=== PATIENT | male | born 1970 | race Caucasian/White ===

== ENCOUNTER 2018-01-26 16:14 | Emergency (ER) | payer OTHER ==
[~2018-01-26] VITALS: Ht 180.3 cm; Wt 105.0 kg
[~2018-01-26 16:14] MED LIST: ATEN-102 PO; BENZ2 PO; GEOD80CA PO; GLUCTAB PO; HALO1TAB25 PO; LAMO150 PO; LIPI80TA16 PO; PROT40TA PO; SERT100 PO
[2018-01-26 16:29] VITALS: BP 149/84; PULSE 70; RESP 17; TEMP 97.8; O2SAT 99
[2018-01-26 17:39] LABS: BASOPHIL # 0.1 TH/MM3 (0-0.2); BASOPHIL % 0.7 % (0.0-2.0); EOSINOPHIL # 0.1 TH/MM3 (0-0.4); HEMATOCRIT 41.5 % (39.0-51.0); HEMOGLOBIN 14.1 GM/DL (13.0-17.0); LYMPH % 20.8 % (9.0-44.0); LYMPHOCYTE # 2.3 TH/MM3 (1.0-4.8); MEAN CELL VOLUME 87.4 FL (80.0-100.0); MEAN CORPUSCULAR HEMOGLOBIN 29.8 PG (27.0-34.0); MEAN CORPUSCULAR HGB CONC 34.1 % (32.0-36.0); MEAN PLATELET VOLUME 9.2 FL (7.0-11.0); MONO % 6.2 % (0.0-8.0); MONOCYTE # 0.7 TH/MM3 (0-0.9); NEUT % 71.3 % (16.0-70.0); PLATELET COUNT 290 TH/MM3 (150-450); RED BLOOD COUNT 4.75 MIL/MM3 (4.50-5.90); RED CELL DISTRIBUTION WIDTH 14.3 % (11.6-17.2); WHITE BLOOD COUNT 11.2 TH/MM3 (4.0-11.0)
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
[2018-01-26 17:57] LABS: ALBUMIN 4.2 GM/DL (3.4-5.0); ALT (GPT) 17 U/L (12-78); AST (GOT) 16 U/L (15-37); BICARBONATE 24.2 MEQ/L (21.0-32.0); BLOOD UREA NITROGEN 14 MG/DL (7-18); CALCIUM 9.3 MG/DL (8.5-10.1); CHLORIDE 108 MEQ/L (98-107); CREATININE 1.21 MG/DL (0.60-1.30); GLOMERULAR FILTRATION RATE 65 ML/MIN (>89); GLUCOSE,RANDOM 76 MG/DL (74-106); SODIUM (NA) 140 MEQ/L (136-145)
[2018-01-26 17:59] LABS: ALKALINE PHOSPHATASE 42 U/L (45-117); TOTAL BILIRUBIN ADULT 0.6 MG/DL (0.2-1.0); TOTAL PROTEIN 7.6 GM/DL (6.4-8.2)
[2018-01-26] MEDS ORDERED: NICOTINE 21 MG/24 HR PATCH T-DERMAL ONE (18:00)
[2018-01-26] MEDS ORDERED: ZIPRASIDONE HCL 80 MG CAP PO ONE (18:00)
[2018-01-26] MEDS ORDERED: ZOLO100T PO (18:01)
[2018-01-26] MEDS ORDERED: LIPI80TA PO (18:01)
[2018-01-26] MEDS ORDERED: BENZ0.5T PO (18:01)
[2018-01-26] MEDS ORDERED: PROT40TA PO (18:01)
[2018-01-26] MEDS ORDERED: LAMO150 PO (18:01)
[2018-01-26] MEDS ORDERED: GEOD80CA PO (18:01)
[2018-01-26] MEDS ORDERED: ATEN50TA PO (18:01)
[2018-01-26 19:55] VITALS: BP 135/76; PULSE 73; RESP 17; O2SAT 97
[2018-01-26 22:30] VITALS: BP 114/55; PULSE 59; RESP 18; TEMP 97.8; O2SAT 96
[2018-01-27 02:40] VITALS: BP 107/52; PULSE 58; RESP 20; TEMP 98.4; O2SAT 92
[2018-01-27 06:04] VITALS: BP 101/52; PULSE 56; RESP 20; TEMP 98.4; O2SAT 95
[2018-01-27 06:07] VITALS: BP 103/58; PULSE 89; RESP 17; TEMP 97.2; O2SAT 100
--- NOTE | 2018-01-27 11:51 | PD ---
Physical Exam Date Seen by Provider: Jan 27, 2018 Time Seen by Provider: 11:50 Narrative 47-year-old male previously medically cleared for psychiatric evaluation has been seen and evaluated by psychiatric services. Patient is deemed psychiatrically stable for discharge. Follow-up is based on psychiatric note. Patient remains medically stable at discharge. Data Data Last Documented VS Vital Signs Date Time Temp Pulse Resp B/P (MAP) Pulse Ox O2 Delivery O2 Flow Rate FiO2 01/27/18 06:07 97.2 89 17 103/58 (73) 100 Room Air Orders Orders Complete Blood Count With Diff (01/26/18 16:31) Comprehensive Metabolic Panel (01/26/18 16:31) Psych Screen (01/26/18 16:31) Drug Screen, Random Urine (01/26/18 16:31) Nicotine 21 Mg Patch.24 Hr (Habitrol 21 (01/26/18 18:00) Ziprasidone (Geodon) (01/26/18 18:00) Diet Regular Basic (01/26/18 Dinner) Diet Regular Basic (01/27/18 Breakfast) Diet Regular Basic (01/27/18 Lunch) Labs Laboratory Tests Test 01/26/18 16:37 01/26/18 18:15 White Blood Count 11.2 TH/MM3 Red Blood Count 4.75 MIL/MM3 Hemoglobin 14.1 GM/DL Hematocrit 41.5 % Mean Corpuscular Volume 87.4 FL Mean Corpuscular Hemoglobin 29.8 PG Mean Corpuscular Hemoglobin Concent 34.1 % Red Cell Distribution Width 14.3 % Platelet Count 290 TH/MM3 Mean Platelet Volume 9.2 FL Neutrophils (%) (Auto) 71.3 % Lymphocytes (%) (Auto) 20.8 % Monocytes (%) (Auto) 6.2 % Eosinophils (%) (Auto) 1.0 % Basophils (%) (Auto) 0.7 % Neutrophils # (Auto) 8.0 TH/MM3 Lymphocytes # (Auto) 2.3 TH/MM3 Monocytes # (Auto) 0.7 TH/MM3 Eosinophils # (Auto) 0.1 TH/MM3 Basophils # (Auto) 0.1 TH/MM3 CBC Comment DIFF FINAL Differential Comment Blood Urea Nitrogen 14 MG/DL Creatinine 1.21 MG/DL Random Glucose 76 MG/DL Total Protein 7.6 GM/DL Albumin 4.2 GM/DL Calcium Level 9.3 MG/DL Alkaline Phosphatase 42 U/L Aspartate Amino Transf (AST/SGOT) 16 U/L Alanine Aminotransferase (ALT/SGPT) 17 U/L Total Bilirubin 0.6 MG/DL Sodium Level 140 MEQ/L Potassium Level 4.2 MEQ/L Chloride Level 108 MEQ/L Carbon Dioxide Level 24.2 MEQ/L Anion Gap 8 MEQ/L Estimat Glomerular Filtration Rate 65 ML/MIN Urine Opiates Screen NEG Urine Barbiturates Screen NEG Urine Amphetamines Screen NEG Urine Benzodiazepines Screen POS Urine Cocaine Screen NEG Urine Cannabinoids Screen NEG MDM Medical Record Reviewed: Yes Supervised Visit with OSEI: Yes Narrative Course 47-year-old male previously medically cleared for psychiatric evaluation has been seen and evaluated by psychiatric services. Patient is deemed psychiatrically stable for discharge. Follow-up is based on psychiatric note. Patient remains medically stable at discharge. Diagnosis Primary Impression: Medical clearance for psychiatric admission Patient Instructions: General Instructions Disposition: 01 DISCHARGE HOME Condition: Stable Jose R Gibbons Jan 27, 2018 11:51
== END 2018-01-27 12:20 | disposition home or self-care (01) ==
LOC: NEPD 16:14 → NEPJ 01-27 12:20
DX: F20.9 Schizophrenia, unspecified (principal); F31.9 Bipolar disorder, unspecified; F90.9 Attention-deficit hyperactivity disorder, unspecified type; I10 Essential (primary) hypertension; F17.210 Nicotine dependence, cigarettes, uncomplicated
CPT/HCPCS: 80053; 80307; 85025; 99283

== ENCOUNTER 2018-08-08 12:28 | Inpatient (IN) ==
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
[2018-08-08 14:59] LABS: Baso # (Auto) 0.1 th/mm3 (0.0-0.2); Baso % (Auto) 0.7 % (0.0-2.0); Eos # (Auto) 0.1 th/mm3 (0.0-0.4); Eos % (Auto) 0.6 % (0.0-4.0); Hematocrit 43.9 % (39.0-51.0); Hemoglobin 15.1 gm/dL (13.0-17.0); Lymph % (Auto) 12.2 % (9.0-44.0); Mean Corpuscular HGB Conc 34.5 % (32.0-36.0); Mean Corpuscular Hemoglobin 30.5 pg (27.0-34.0); Mean Corpuscular Volume 88.6 fL (80.0-100.0); Mean Platelet Volume 9.2 fL (7.0-11.0); Mono # (Auto) 1.3 th/mm3 (0.0-0.9); Mono % (Auto) 7.8 % (0.0-8.0); Neut # (Auto) 13.2 th/mm3 (1.8-7.7); Neut % (Auto) 78.7 % (16.0-70.0); Platelet Count 297 th/mm3 (150-450); Red Blood Count 4.96 mil/mm3 (4.50-5.90); Red Cell Distribution Width 14.6 % (11.6-17.2); White Blood Count 16.8 th/mm3 (4.0-11.0)
[2018-08-08 15:17] LABS: Amphetamine Screen,Urine Neg (Neg); Anion Gap 8 meq/L (5-15); Barbiturate Screen,Urine Neg (Neg); Cannabinoid Screen,Urine Neg (Neg); Cocaine Screen,Urine Neg (Neg)
[2018-08-08 15:22] LABS: Opiate Screen,Urine Neg (Neg)
[2018-08-08 15:30] LABS: Alanine Aminotransferase 12 U/L (12-78); Albumin 3.6 g/dL (3.4-5.0); Alkaline Phosphatase 77 U/L (45-117); Aspartate Aminotransferase 8 U/L (15-37); Blood Urea Nitrogen 4 mg/dL (7-18); Calcium 8.7 mg/dL (8.5-10.1); Carbon Dioxide 27.2 meq/L (21.0-32.0); Chloride 103 meq/L (98-107); Glomerular Filtration Rate Greater Than 89 mL/min (>89); Glucose,Random 98 mg/dL (74-106); Potassium 3.5 meq/L (3.5-5.1); Sodium 138 meq/L (136-145); Thyroid Stimulating Hormone 0.752 uIU/mL (0.358-3.740); Total Protein 7.7 g/dL (6.4-8.2)
[2018-08-08] MEDS ORDERED: Acetaminophen 325 MG Tablet PO PRN (23:07)
[2018-08-08] MEDS ORDERED: Aluminum/Magnesium/Simethacone Susp 30 ML UDC PO PRN (23:08)
[2018-08-08] MEDS: Benztropine 2 MG Tablet PO SCH (23:40)
[2018-08-09] MEDS: Sertraline 100 MG Tablet PO SCH (09:27)
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
[2018-08-09] MEDS: Pantoprazole Sodium 20 MG DR Tablet PO SCH (17:04)
[2018-08-09] MEDS: Fenofibrate 145 MG Tablet PO SCH (17:04)
[2018-08-09] MEDS: Atenolol 50 MG Tablet PO SCH (17:04)
[2018-08-09] MEDS: Benztropine 2 MG Tablet PO SCH (20:14)
[2018-08-09] MEDS ORDERED: Melatonin 5 MG Tablet PO PRN (21:00)
[2018-08-10 07:44] LABS: Anion Gap 6 meq/L (5-15); Blood Urea Nitrogen 12 mg/dL (7-18); Calcium 8.9 mg/dL (8.5-10.1); Chloride 107 meq/L (98-107); Cholesterol 144 mg/dL (120-200); Glomerular Filtration Rate Greater Than 89 mL/min (>89); Glucose,Random 95 mg/dL (74-106); Potassium 3.9 meq/L (3.5-5.1); Sodium 144 meq/L (136-145)
[2018-08-10 07:46] LABS: Chol/HDL Ratio 4.84 Ratio; HDL Cholesterol 29.7 mg/dL (40.0-60.0); LDL Cholesterol,Calculated 92 mg/dL (0-99); Triglycerides 114 mg/dL (42-150)
[2018-08-10] MEDS: Pantoprazole Sodium 20 MG DR Tablet PO SCH (08:37)
[2018-08-10] MEDS: Sertraline 100 MG Tablet PO SCH (08:37)
[2018-08-10] MEDS: Fenofibrate 145 MG Tablet PO SCH (08:37)
[2018-08-10] MEDS: Atenolol 50 MG Tablet PO SCH (08:37)
--- NOTE | 2018-08-10 11:52 | ECG ---
Date Performed: 08/09/2018 Time Performed: 15:50:29 PTAGE: 48 years EKG: Sinus rhythm INCOMPLETE RIGHT BUNDLE BRANCH BLOCK BORDERLINE ECG PREVIOUS TRACING : 04/04/2009 21.44 DOCTOR: Nixon Nguyen Interpretating Date/Time 08/10/2018 11:50:00
[2018-08-10 13:02] LABS: Baso # (Auto) 0.1 th/mm3 (0.0-0.2); Baso % (Auto) 0.5 % (0.0-2.0); Eos # (Auto) 0.2 th/mm3 (0.0-0.4); Eos % (Auto) 1.7 % (0.0-4.0); Hematocrit 39.9 % (39.0-51.0); Lymph # (Auto) 2.7 th/mm3 (1.0-4.8); Lymph % (Auto) 24.1 % (9.0-44.0); Mean Corpuscular HGB Conc 35.1 % (32.0-36.0); Mean Corpuscular Hemoglobin 31.2 pg (27.0-34.0); Mean Platelet Volume 9.3 fL (7.0-11.0); Mono # (Auto) 1.1 th/mm3 (0.0-0.9); Mono % (Auto) 9.3 % (0.0-8.0); Neut # (Auto) 7.3 th/mm3 (1.8-7.7); Neut % (Auto) 64.4 % (16.0-70.0); Platelet Count 302 th/mm3 (150-450); Red Blood Count 4.48 mil/mm3 (4.50-5.90); Red Cell Distribution Width 14.2 % (11.6-17.2); White Blood Count 11.4 th/mm3 (4.0-11.0)
--- NOTE | 2018-08-10 14:34 | P.PNPSY ---
Subjective Chief Complaint: "Get me stable again on my meds." Remarks: Patient seen and examined with nurse. Chart reviewed. Case discussed with nursing staff who reports patient is experiencing a fairly significant cough. On my examination today, the patient says that he has had this cough for 3 or 4 days. He reports that he has been feeling somewhat feverish and even threw up and had some loose stools prior to admission. He endorses ongoing auditory hallucinations saying "werewolf's fault." He denies any SI or HI. He complains of a mild resting tremor, evident on exam, but otherwise denies side effects from medications. We discussed titrating Cogentin to target this resting tremor. Besides the cough and resting tremor, no other physical complaints. Vital Signs Temp Pulse Resp BP Pulse Ox 08/10/18 06:00 97.4 F L 67 14 123/60 94 L 08/09/18 16:00 97.9 F 69 18 182/72 H 92 L Laboratory Results - last 24 hr 08/10/18 08/10/18 06:40 06:40 WBC 11.4 H RBC 4.48 L Hgb 14.0 Hct 39.9 MCV 89.0 MCH 31.2 MCHC 35.1 RDW 14.2 Plt Count 302 MPV 9.3 Neut % (Auto) 64.4 Lymph % (Auto) 24.1 [place] % (Auto) 9.3 H Eos % (Auto) 1.7 Baso % (Auto) 0.5 Neut # (Auto) 7.3 Lymph # (Auto) 2.7 [place] # (Auto) 1.1 H Eos # (Auto) 0.2 Baso # (Auto) 0.1 WBC Differential . Differential Comment Auto diff final Sodium 144 Potassium 3.9 Chloride 107 Carbon Dioxide 31.0 Anion Gap 6 BUN 12 Creatinine 0.72 Estimated GFR Greater than 89 Random Glucose 95 Calcium 8.9 Triglycerides 114 Cholesterol 144 LDL Cholesterol, Calc 92 HDL Cholesterol 29.7 L Cholesterol/HDL Ratio 4.84 Labs reviewed. Mild leukocytosis persists. EKG read as sinus rhythm with incomplete right bundle branch block with a QTC of 408 ms, not prolonged. Review of Systems All other systems reviewed negative except as stated in HPI Mental Status Examination Appearance: Appropriate Consciousness: Alert Orientation: x4 Motor Activity: Other (Mild resting tremor, no other motor abnormalities noted.) Speech: Unremarkable Language: Adequate Fund of Knowledge: Adequate Attention and Concentration: Adequate Memory: Unremarkable (Grossly intact on clinical exam) Mood: Appropriate Affect: Appropriate Thought Process & Associations: Intact Thought Content: Hallucinations Hallucination Type: Auditory (Ongoing) Delusion Type: None Suicidal Ideation: No Suicidal Plan: No Suicidal Intention: No Homicidal Ideation: No Homicidal Plan: No Homicidal Intention: No Insight: Fair Judgment: Impulsive Assessment and Plan - Assessment (1) Schizophrenia Code(s): F20.9 - Schizophrenia, unspecified Status: Acute (2) Cocaine use disorder Code(s): F14.10 - Cocaine abuse, uncomplicated Status: Acute - Plan Plan: Titrate Cogentin to target probable EPS from antipsychotic to 2 mg twice daily. R/B/A for medication change discussed with patient. Continue psychotropics as ordered as patient reports that these were efficacious when he was taking them. If we do not see solid response to current psychotropic regimen within a day or 2 though, we should consider titrating or adjusting medications. Hospitalist consultation for cough and associated symptoms. Continue to monitor on inpatient unit. Continue other medications and care as ordered. Justification for Continued Inpatient Stay: Impairment in reality construction. Complicating condition. Risk for decompensation in less restrictive environment. Discharge Planning: Pending psychiatric stabilization. Request Healthcare Surrogate/Guardian Advocate?: No (1) Schizophrenia Qualifiers: Schizophrenia type: undifferentiated schizophrenia Qualified Code(s): F20.3 - Undifferentiated schizophrenia
--- NOTE | 2018-08-10 15:29 | P.CON ---
History of Present Illness Service: [facility] Consult date: 08/10/18 Requesting Physician: Mikel Nieto Reason for Consult: Cough Primary Care Provider: UNKNOWN Chief Complaint: Cough History of Present Illness: Patient is a 48-year-old male with past medical history of HTN, HLD, current day smoker who initially came into the hospital under [place] act for suicidal ideation. Per review of records patient has been thinking of trying to jump off moving car and active thoughts of using a knife that he keeps under his pillow to try to end his life. He is now admitted to inpatient psychiatry and for further evaluation. Consulted for assistance with medical management. Patient seen and examined today. Reports congestion. States that he has congestion on his chest and neck pain. Denies odynophagia, dysphasia. States productive cough minimal amount of yellow sputum. States he is a current day smoker, last smoked 2-3 days ago, a pack per day. States he also smokes cigars visits cheaper. Reports subjective fevers per otherwise, Denies pain and discomfort. Denies SOB/ dyspnea. Denies chest pain, palpitations, headaches, dizziness. Denies chills, n/v/d. Denies dysuria. Review of Systems All other systems reviewed negative except as stated in HPI [facility] - History History Provided By: Patient, Medical Record - Medical History Medical History: Medical History (Last Reviewed 08/10/18 @ 16:06 by YAMINI Arroyo) Hypercholesterolemia Hypertension Schizophrenia - Surgical History Surgical History: Surgical History (Last Reviewed 08/10/18 @ 16:06 by YAMINI Arroyo) No history of previous surgery - Family History Family History: Family History (Last Updated 08/10/18 @ 16:07 by YAMINI Arroyo) Father Hypothyroidism Mother Hypothyroidism Diabetes - Social History I have reviewed the patient's Social History: Yes - Tobacco History Second Hand Smoke Exposure: No Tobacco Use In Past 30 Days: Yes Smoking Status: Current every day smoker Tobacco Type: Cigarettes - Alcohol History How Often Do You Have a Drink Containing Alcohol: 2 to 4 times a month - Substance Use History Substance History: Active Abuse - Substance Use Type Crack/Cocaine Type: 2 days ago Status: Active Route Used: Inhalation Reason for Use: Calm Down - Travel History Recent Travel in the [facility] Within the Last 8 Weeks: No Recent Travel Out of the Country Within the Last 8 Weeks: No - Immunization History Tetanus Immunization: Unsure Hx Influenza Vaccine This Season: No Medications and Allergies Active Medications: Active Medications Acetaminophen (Tylenol) 650 mg PO Q4H PRN PRN Reason: PAIN 1-5 OR TEMP > 101 Al Hydrox/Mg Hydrox/Simethicone (Mag-Al Plus Susp Liq) 30 ml PO Q6H PRN PRN Reason: DYSPEPSIA Al Hydroxide/Mg Hydroxide (Milk Of Magnesia Liq) 30 ml PO DAILY PRN PRN Reason: CONSTIPATION Atenolol (Tenormin) 50 mg PO DAILY COUNTS INCLUDE 234 BEDS AT THE [facility] Last Admin: 08/10/18 08:37 Dose: 50 mg Benztropine Mesylate (Cogentin) 2 mg PO BID COUNTS INCLUDE 234 BEDS AT THE [facility] Buspirone HCl (Buspar) 5 mg PO BID COUNTS INCLUDE 234 BEDS AT THE [facility] Last Admin: 08/10/18 08:37 Dose: 5 mg Clonidine HCl (Catapres) 0.1 mg PO Q8HR PRN PRN Reason: SBP>180 or DBP>100 Clopidogrel Bisulfate (Plavix) 75 mg PO DAILY COUNTS INCLUDE 234 BEDS AT THE [facility] Last Admin: 08/10/18 08:37 Dose: 75 mg Fenofibrate (Tricor) 145 mg PO DAILY COUNTS INCLUDE 234 BEDS AT THE [facility] Last Admin: 08/10/18 08:37 Dose: 145 mg Fluphenazine HCl (Prolixin) 10 mg PO HS COUNTS INCLUDE 234 BEDS AT THE [facility] Last Admin: 08/09/18 20:14 Dose: 10 mg Hydroxyzine HCl (Atarax) 50 mg PO Q6H PRN PRN Reason: ANXIETY Melatonin (Melatonin) 5 mg PO HS PRN PRN Reason: INSOMNIA Nicotine (Habitrol 21 Mg Patch.24 Hr) 1 patch T-DERMAL DAILY PRN PRN Reason: NICOTINE CRAVING Pantoprazole Sodium (Protonix) 20 mg PO DAILY COUNTS INCLUDE 234 BEDS AT THE [facility] Last Admin: 08/10/18 08:37 Dose: 20 mg Patch Removal (Remove Old Patch) 1 each T-DERMAL HS PRN PRN Reason: NICOTINE CRAVING Sertraline HCl (Zoloft) 200 mg PO DAILY COUNTS INCLUDE 234 BEDS AT THE [facility] Last Admin: 08/10/18 08:37 Dose: 200 mg Ziprasidone (Geodon) 80 mg PO HS COUNTS INCLUDE 234 BEDS AT THE [facility] Last Admin: 08/09/18 20:14 Dose: 80 mg Allergies Allergy/AdvReac Type Severity Reaction Status Date / Time trazodone Allergy Severe SEVERE Verified 08/08/18 13:34 "HARD ON" No Known Allergies AdvReac Unknown Abdominal Uncoded 08/08/18 13:34 Pain Home Medications Medication Instructions Recorded Confirmed Type Cogentin 2 mg PO HS 08/08/18 08/08/18 History Geodon 80 mg PO HS 08/08/18 08/08/18 History Zoloft 20 mg PO DAILY 08/08/18 08/08/18 History buspirone 5 mg PO BID 08/08/18 08/08/18 History fluphenazine HCl 10 mg PO HS 08/08/18 08/08/18 History fluphenazine decanoate 25 mg IM Q3W 08/08/18 08/08/18 History Physical Exam Vital signs: Vital Signs 08/09/18 16:00 08/10/18 06:00 Temperature 97.9 F 97.4 F L Pulse Rate 69 67 Respiratory Rate 18 14 Blood Pressure 182/72 H 123/60 Pulse Oximetry 92 L 94 L Narrative: GENERAL: This is a well-nourished, well-developed patient, in no apparent distress. SKIN: Warm and dry. HEENT: Normocephalic. Pupils equal round and reactive. Nose without bleeding. Airway patent. Right tonsillar abscess noted. No sinus tenderness. No cervical adenopathy NECK: Trachea midline. CARDIOVASCULAR: Regular rate and rhythm without murmurs, gallops, or rubs. RESPIRATORY: Clear to auscultation. Breath sounds equal bilaterally. No wheezes , rales, or rhonchi. GASTROINTESTINAL: Abdomen soft, non-tender, nondistended. Bowel Sounds normoactive x4. MUSCULOSKELETAL: Extremities without clubbing, cyanosis, or edema. NEUROLOGICAL: Awake and alert. No focal neuro deficit. Moves all extremities. Normal speech. Assessment and Plan - Plan Patient is a 48-year-old male with past medical history of HTN, HLD, current day smoker who initially came into the hospital under [place] act for suicidal ideation. Per review of records patient has been thinking of trying to jump off moving car and active thoughts of using a knife that he keeps under his pillow to try to end his life. He is now admitted to inpatient psychiatry and for further evaluation. Consulted for assistance with medical management. Suicidal ideation -Managed by psychiatry team Cough, congestion Possible underlying COPD, current day smoker -Chest x-ray ordered -Duo nebs scheduled, as needed -Mucinex twice daily -May add Singulair -Counseled on tobacco cessation HTN HLD -Continue home medication Tobacco abuse Cocaine abuse -Counseled -Discussed extensively with patient the possible cough and congestion secondary to cocaine abuse and cessation, tobacco abuse and cessation within the past 2-3 days. DVT prop ambulatory Code Status: Full code Discussed Condition With: Patient, nurse Discharge Planning: DC disposition by primary team
--- NOTE | 2018-08-10 16:09 | XR ---
EXAM DATE: 08/10/2018 4:05 PM EDT AGE/SEX: 48 years / Male INDICATIONS: Cough. CLINICAL DATA: This is the patient's initial encounter. Patient reports that signs and symptoms have been present for 1 day and indicates a pain score of 2/10. MEDICAL/SURGICAL HISTORY: . Schizoaffective. None. COMPARISON: No prior exams available for comparison. FINDINGS: A single AP view of the chest demonstrates the lungs to be symmetrically aerated without evidence of mass, focal consolidation, or effusion. The cardiomediastinal contours are unremarkable. CONCLUSION: No acute cardiopulmonary process. Electronically signed by: Kamala Landa MD 08/10/2018 4:07 PM EDT
[2018-08-10 17:01] LABS: Hemoglobin A1c 5.6 % (4.3-6.0)
[2018-08-10] MEDS: Benztropine 2 MG Tablet PO SCH (20:55)
[2018-08-10] MEDS: guaiFENesin 600 MG ER Tablet PO SCH (20:55)
[2018-08-10] MEDS: Montelukast 10 MG Tablet PO SCH (20:56)
[2018-08-11 09:37] LABS: Baso # (Auto) 0.1 th/mm3 (0.0-0.2); Baso % (Auto) 0.8 % (0.0-2.0); Eos # (Auto) 0.2 th/mm3 (0.0-0.4); Eos % (Auto) 1.8 % (0.0-4.0); Hematocrit 43.1 % (39.0-51.0); Hemoglobin 14.3 gm/dL (13.0-17.0); Lymph # (Auto) 2.3 th/mm3 (1.0-4.8); Mean Corpuscular HGB Conc 33.1 % (32.0-36.0); Mean Corpuscular Hemoglobin 29.6 pg (27.0-34.0); Mean Corpuscular Volume 89.4 fL (80.0-100.0); Mean Platelet Volume 8.7 fL (7.0-11.0); Mono # (Auto) 0.8 th/mm3 (0.0-0.9); Mono % (Auto) 7.7 % (0.0-8.0); Neut # (Auto) 7.4 th/mm3 (1.8-7.7); Neut % (Auto) 68.7 % (16.0-70.0); Platelet Count 337 th/mm3 (150-450); Red Blood Count 4.82 mil/mm3 (4.50-5.90); Red Cell Distribution Width 14.5 % (11.6-17.2); White Blood Count 10.8 th/mm3 (4.0-11.0)
[2018-08-11 10:00] LABS: Anion Gap 7 meq/L (5-15); Blood Urea Nitrogen 15 mg/dL (7-18); Carbon Dioxide 29.1 meq/L (21.0-32.0); Chloride 105 meq/L (98-107); Glomerular Filtration Rate Greater Than 89 mL/min (>89); Glucose,Random 119 mg/dL (74-106); Potassium 4.1 meq/L (3.5-5.1); Sodium 141 meq/L (136-145)
[2018-08-11] MEDS: Sertraline 100 MG Tablet PO SCH (10:00)
[2018-08-11] MEDS: Fenofibrate 145 MG Tablet PO SCH (10:00)
[2018-08-11] MEDS: Pantoprazole Sodium 20 MG DR Tablet PO SCH (10:00)
[2018-08-11] MEDS: Atenolol 50 MG Tablet PO SCH (10:00)
[2018-08-11] MEDS: Benztropine 2 MG Tablet PO SCH ×2 (10:01→21:39)
[2018-08-11] MEDS: guaiFENesin 600 MG ER Tablet PO SCH ×2 (10:01→21:39)
--- NOTE | 2018-08-11 14:07 | P.PN ---
Subjective Interval history: Follow-up visit COPD, congestion, HTN. Patient seen and examined today. Reports he is doing okay. States that he has learned his lesson not to use crack cocaine and to smoke cigarettes. Denies pain and discomfort. Denies SOB / dyspnea. Denies chest pain, palpitations, headaches, dizziness. Denies fevers , chills, n/v/d. Denies dysuria. Physical Exam Vital signs: Vital Signs 08/10/18 18:24 08/10/18 20:57 08/11/18 05:05 Temperature 98.3 F 98.0 F Pulse Rate 70 70 65 Respiratory Rate 18 18 16 Blood Pressure 118/82 110/67 Pulse Oximetry 97 94 L 08/11/18 09:24 Temperature Pulse Rate 63 Respiratory Rate 14 Blood Pressure Pulse Oximetry Intake & Output 08/10/18 08/11/18 08/11/18 18:59 06:59 18:59 Weight 101.2 kg Narrative: GENERAL: This is a well-nourished, well-developed patient, in no apparent distress. SKIN: Warm and dry. HEENT: Normocephalic. Pupils equal round and reactive. Nose without bleeding. Airway patent. Right tonsillar abscess noted. No sinus tenderness. No cervical adenopathy NECK: Trachea midline. CARDIOVASCULAR: Regular rate and rhythm without murmurs, gallops, or rubs. RESPIRATORY: Clear to auscultation. Breath sounds equal bilaterally. No wheezes , rales, or rhonchi. GASTROINTESTINAL: Abdomen soft, non-tender, nondistended. Bowel Sounds normoactive x4. MUSCULOSKELETAL: Extremities without clubbing, cyanosis, or edema. NEUROLOGICAL: Awake and alert. No focal neuro deficit. Moves all extremities. Normal speech. Results - Labs CBC & Chem 7: 08/11/18 08:57 08/11/18 08:57 Laboratory Results - last 24 hr 08/10/18 08/11/18 08/11/18 06:40 08:57 08:57 WBC 10.8 RBC 4.82 Hgb 14.3 Hct 43.1 MCV 89.4 MCH 29.6 MCHC 33.1 RDW 14.5 Plt Count 337 MPV 8.7 Neut % (Auto) 68.7 Lymph % (Auto) 21.0 [place] % (Auto) 7.7 Eos % (Auto) 1.8 Baso % (Auto) 0.8 Neut # (Auto) 7.4 Lymph # (Auto) 2.3 [place] # (Auto) 0.8 Eos # (Auto) 0.2 Baso # (Auto) 0.1 WBC Differential . Differential Comment Auto diff final Sodium 141 Potassium 4.1 Chloride 105 Carbon Dioxide 29.1 Anion Gap 7 BUN 15 Creatinine 0.86 Estimated GFR Greater than 89 Random Glucose 119 H Hemoglobin A1c 5.6 Calcium 9.0 - Imaging Impressions Chest X-Ray 08/10/18 00:00 CONCLUSION: No acute cardiopulmonary process. Assessment and Plan - Plan Patient is a 48-year-old male with past medical history of HTN, HLD, current day smoker who initially came into the hospital under [place] act for suicidal ideation. Per review of records patient has been thinking of trying to jump off moving car and active thoughts of using a knife that he keeps under his pillow to try to end his life. He is now admitted to inpatient psychiatry and for further evaluation. Consulted for assistance with medical management. Suicidal ideation -Managed by psychiatry team Cough, congestion Possible underlying COPD, current day smoker -Chest x-ray showed no acute cardiopulmonary process. -Duo nebs scheduled, as needed -Mucinex twice daily -Singulair -Counseled on tobacco cessation -Nicotine patch HTN HLD -Continue home medication atenolol, Plavix, TriCor -BP stable Tobacco abuse Cocaine abuse -Counseled -Discussed extensively with patient the possible cough and congestion secondary to cocaine abuse and cessation, tobacco abuse and cessation within the past 2-3 days. DVT prop ambulatory Stable from Hospitalist standpoint. We will sign off. Reconsult as needed. Thank you. Code Status: Full code Discussed Condition With: Patient, nursing Discharge Planning: DC disposition by primary team
--- NOTE | 2018-08-11 15:44 | P.PNPSY ---
Subjective Chief Complaint: "Get me stable again on my meds." Remarks: Patient seen and examined with nurse. Chart reviewed. Case discussed with nursing staff. I find the patient in the day area, deep in conversation with a peer. When I ask him to join me for interview, he silently holds up a finger to dismiss me until he has completed his conversation. When he does join me for interview, he reports that he is seeing "images to harm myself" that come "from the spiritual realm." He says that he is visualizing himself poking himself in the eye. He denies any urge to actually hurt himself or others. There is perhaps a mildly manipulative quality to his report. Reports mild resting tremor, barely perceptible on exam, but then says that this may be chronic. Denies side effects from medications otherwise. No physical complaints. Vital Signs Temp Pulse Resp BP Pulse Ox 08/11/18 09:24 63 14 08/11/18 05:05 98.0 F 65 16 110/67 94 L 08/10/18 20:57 70 18 08/10/18 18:24 98.3 F 70 18 118/82 97 Intake and Output 08/11/18 08/11/18 08/11/18 06:59 14:59 22:59 Other: Weight 101.2 kg Laboratory Results - last 24 hr 08/10/18 08/11/18 08/11/18 06:40 08:57 08:57 WBC 10.8 RBC 4.82 Hgb 14.3 Hct 43.1 MCV 89.4 MCH 29.6 MCHC 33.1 RDW 14.5 Plt Count 337 MPV 8.7 Neut % (Auto) 68.7 Lymph % (Auto) 21.0 [place] % (Auto) 7.7 Eos % (Auto) 1.8 Baso % (Auto) 0.8 Neut # (Auto) 7.4 Lymph # (Auto) 2.3 [place] # (Auto) 0.8 Eos # (Auto) 0.2 Baso # (Auto) 0.1 WBC Differential . Differential Comment Auto diff final Sodium 141 Potassium 4.1 Chloride 105 Carbon Dioxide 29.1 Anion Gap 7 BUN 15 Creatinine 0.86 Estimated GFR Greater than 89 Random Glucose 119 H Hemoglobin A1c 5.6 Calcium 9.0 Labs reviewed. Review of Systems All other systems reviewed negative except as stated in HPI Mental Status Examination Appearance: Appropriate Consciousness: Alert Orientation: x4 Motor Activity: Other (Very mild resting hand tremor. No other motoric abnormalities noted.) Speech: Unremarkable Language: Adequate Fund of Knowledge: Adequate Attention and Concentration: Adequate Memory: Unremarkable (Grossly intact on clinical exam) Mood: Appropriate Affect: Appropriate Thought Process & Associations: Intact Thought Content: Hallucinations Hallucination Type: Auditory, Command, Other (Does not appear internally stimulated) Delusion Type: None Suicidal Ideation: No Suicidal Plan: No Suicidal Intention: No Homicidal Ideation: No Homicidal Plan: No Homicidal Intention: No Insight: Fair Judgment: Impulsive Assessment and Plan - Assessment (1) Schizophrenia Code(s): F20.9 - Schizophrenia, unspecified Status: Acute (2) Cocaine use disorder Code(s): F14.10 - Cocaine abuse, uncomplicated Status: Acute - Plan Plan: Titrate Geodon to 40 mg in the morning and 80 mg at bedtime. Continue Prolixin by mouth as ordered augmenting Prolixin decanoate administered shortly prior to admission. Continue other psychotropics as ordered. Continue to monitor on the inpatient unit. Hospitalist input noted and appreciated. Continue other medications and care as ordered. Justification for Continued Inpatient Stay: Risk for decompensation in less restrictive environment. Medication changes. Reported impairment in reality construction. Discharge Planning: Pending psychiatric stabilization. Request Healthcare Surrogate/Guardian Advocate?: No (1) Schizophrenia Qualifiers: Schizophrenia type: undifferentiated schizophrenia Qualified Code(s): F20.3 - Undifferentiated schizophrenia
[2018-08-11] MEDS: Montelukast 10 MG Tablet PO SCH (21:39)
[2018-08-12] MEDS: guaiFENesin 600 MG ER Tablet PO SCH ×2 (10:23→21:01)
[2018-08-12] MEDS: Fenofibrate 145 MG Tablet PO SCH (10:24)
[2018-08-12] MEDS: Sertraline 100 MG Tablet PO SCH (10:24)
[2018-08-12] MEDS: Benztropine 2 MG Tablet PO SCH ×2 (10:24→21:02)
[2018-08-12] MEDS: Pantoprazole Sodium 20 MG DR Tablet PO SCH (10:25)
[2018-08-12] MEDS: Atenolol 50 MG Tablet PO SCH (10:25)
--- NOTE | 2018-08-12 14:34 | P.PNPSY ---
Subjective Chief Complaint: "Get me stable again on my meds." Remarks: Reviewed electronic medical records and discussed case with staff. Follow-up was conducted in the patient's room. Staff reports that he has been compliant with medications, had no behavioral issues, and is somewhat childlike. Patient advises that he has been sleeping well and has had a good appetite. He does report that he had a tremor around breakfast however, at this time it is stopped. Mental Status Examination Appearance: Appropriate Consciousness: Alert Orientation: x4 Motor Activity: Other (Very mild resting hand tremor. No other motoric abnormalities noted.) Speech: Unremarkable Language: Adequate Fund of Knowledge: Adequate Attention and Concentration: Adequate Memory: Unremarkable (Grossly intact on clinical exam) Mood: Appropriate Affect: Appropriate Thought Process & Associations: Intact Thought Content: Hallucinations Hallucination Type: Auditory, Command, Other (Does not appear internally stimulated) Delusion Type: None Suicidal Ideation: No Suicidal Plan: No Suicidal Intention: No Homicidal Ideation: No Homicidal Plan: No Homicidal Intention: No Insight: Fair Judgment: Impulsive Assessment and Plan - Assessment (1) Schizophrenia Code(s): F20.9 - Schizophrenia, unspecified Status: Acute - Plan Plan: Patient will be reevaluated Wednesday by the attending psychiatrist. Continue with current treatment plan. Justification for Continued Inpatient Stay: Moving this patient to a less restrictive environment would likely result in decompensation. Request Healthcare Surrogate/Guardian Advocate?: No (1) Schizophrenia Qualifiers: Schizophrenia type: undifferentiated schizophrenia Qualified Code(s): F20.3 - Undifferentiated schizophrenia
[2018-08-12] MEDS: Montelukast 10 MG Tablet PO SCH (21:02)
[2018-08-13] MEDS: Pantoprazole Sodium 20 MG DR Tablet PO SCH (09:47)
[2018-08-13] MEDS: guaiFENesin 600 MG ER Tablet PO SCH ×2 (09:47→21:16)
[2018-08-13] MEDS: Sertraline 100 MG Tablet PO SCH (09:48)
[2018-08-13] MEDS: Atenolol 50 MG Tablet PO SCH (09:48)
[2018-08-13] MEDS: Fenofibrate 145 MG Tablet PO SCH (09:48)
[2018-08-13] MEDS: Benztropine 2 MG Tablet PO SCH ×2 (09:48→21:16)
--- NOTE | 2018-08-13 15:41 | P.PNPSY ---
Subjective Chief Complaint: "Get me stable again on my meds." Remarks: Reviewed electronic medical records and discussed case with staff. Follow-up was conducted in the hallway with EILEEN Lewis present. Patient reports that his sleeping was "on and off". He states that his appetite's been good. He reports that his mood is better than yesterday. Speech is somewhat rapid and low. He interacts appropriately throughout the follow-up visit. Mental Status Examination Appearance: Appropriate Consciousness: Alert Orientation: x4 Motor Activity: Other (Very mild resting hand tremor. No other motoric abnormalities noted.) Speech: Unremarkable Language: Adequate Fund of Knowledge: Adequate Attention and Concentration: Adequate Memory: Unremarkable (Grossly intact on clinical exam) Mood: Appropriate Affect: Appropriate Thought Process & Associations: Intact Thought Content: Hallucinations Hallucination Type: Auditory, Command, Other (Does not appear internally stimulated) Delusion Type: None Suicidal Ideation: No Suicidal Plan: No Suicidal Intention: No Homicidal Ideation: No Homicidal Plan: No Homicidal Intention: No Insight: Fair Judgment: Impulsive Assessment and Plan - Assessment (1) Schizophrenia Code(s): F20.9 - Schizophrenia, unspecified Status: Acute - Plan Plan: Patient will be reevaluated Wednesday by the attending psychiatrist. Continue with current treatment plan. Justification for Continued Inpatient Stay: Moving this patient to a less restrictive environment would likely result in decompensation. Request Healthcare Surrogate/Guardian Advocate?: No (1) Schizophrenia Qualifiers: Schizophrenia type: undifferentiated schizophrenia Qualified Code(s): F20.3 - Undifferentiated schizophrenia
[2018-08-13] MEDS: Montelukast 10 MG Tablet PO SCH (21:16)
[2018-08-14 05:50] VITALS: O2SAT 95
[2018-08-14] MEDS: Sertraline 100 MG Tablet PO SCH (11:08)
[2018-08-14] MEDS: Pantoprazole Sodium 20 MG DR Tablet PO SCH (11:09)
[2018-08-14] MEDS: Benztropine 2 MG Tablet PO SCH ×2 (11:09→21:12)
[2018-08-14] MEDS: guaiFENesin 600 MG ER Tablet PO SCH ×2 (11:09→21:12)
[2018-08-14] MEDS: Atenolol 50 MG Tablet PO SCH (11:10)
[2018-08-14] MEDS: Fenofibrate 145 MG Tablet PO SCH (11:10)
--- NOTE | 2018-08-14 14:42 | P.PNPSY ---
Subjective Chief Complaint: Schizophrenia Remarks: Reviewed electronic medical records and discussed case with staff. Follow-up was conducted in common area with EILEEN Liang. Patient is euthymic. He states that he is back on medications and feels stable. Denies AVH. Denies SI/HI. Is participating in group activities. Engaging in conversation with other patients. Sleeping and eating well. Review of Systems All other systems reviewed negative except as stated in HPI Mental Status Examination Appearance: Appropriate Consciousness: Alert Orientation: x4 Motor Activity: Other (Very mild resting hand tremor. No other motoric abnormalities noted.) Speech: Unremarkable Language: Adequate Fund of Knowledge: Adequate Attention and Concentration: Adequate Memory: Unremarkable (Grossly intact on clinical exam) Mood: Appropriate Affect: Appropriate Thought Process & Associations: Intact Thought Content: Hallucinations Hallucination Type: Auditory, Command, Other (Does not appear internally stimulated) Delusion Type: None Suicidal Ideation: No Suicidal Plan: No Suicidal Intention: No Homicidal Ideation: No Homicidal Plan: No Homicidal Intention: No Insight: Adequate Judgment: Adequate Assessment and Plan - Assessment (1) Schizophrenia Code(s): F20.9 - Schizophrenia, unspecified Status: Acute (2) Cocaine use disorder Code(s): F14.10 - Cocaine abuse, uncomplicated Status: Acute - Plan Plan: Patient will be reevaluated Wednesday by the attending psychiatrist. Continue with current treatment plan. Justification for Continued Inpatient Stay: Moving patient to a less restrictive environment may result in his decompensation. Request Healthcare Surrogate/Guardian Advocate?: No (1) Schizophrenia Qualifiers: Schizophrenia type: undifferentiated schizophrenia Qualified Code(s): F20.3 - Undifferentiated schizophrenia
[2018-08-14] MEDS: Montelukast 10 MG Tablet PO SCH (21:12)
[2018-08-15 07:13] VITALS: BP 117/64; PULSE 74; RESP 18; TEMP 98.2
[2018-08-15] MEDS: Atenolol 50 MG Tablet PO SCH (09:49)
[2018-08-15] MEDS: Sertraline 100 MG Tablet PO SCH (09:49)
[2018-08-15] MEDS: Pantoprazole Sodium 20 MG DR Tablet PO SCH (09:49)
[2018-08-15] MEDS: guaiFENesin 600 MG ER Tablet PO SCH (09:50)
[2018-08-15] MEDS: Benztropine 2 MG Tablet PO SCH (09:50)
[2018-08-15] MEDS: Fenofibrate 145 MG Tablet PO SCH (09:50)
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
== END 2018-08-15 15:45 | disposition home or self-care (01) ==
LOC: NEPD 12:28 → NEDA 22:59 → H260 23:58
PROVIDERS: ADMIT Psychiatry & Neurology Psychiatry; ATTEND Psychiatry & Neurology Psychiatry